=== PATIENT | male | born 2005 | race Caucasian/White ===

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

== ENCOUNTER 2024-03-19 18:51 | Emergency (ER) | payer OTHER, SELFPAY ==
[2024-03-19 18:54] VITALS: BP 142/84; PULSE 68; RESP 19; TEMP 36.6; O2SAT 99
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
[2024-03-19] MEDS: HYDROmorphone HCL INJ (*CRX) 2 MG/ML VIAL 0.5 MG IM (19:11)
[2024-03-19] MEDS: ONDANSETRON HCL ODT 4 MG TABLET PO (19:12)
[2024-03-19] MEDS: SILVER SULFADIAZINE 1% CR 50 GM JAR (*BKC) 1 APPLIC TOPICAL (20:02)
== END 2024-03-19 20:10 | disposition home or self-care (01) ==
PROVIDERS: Emergency Provider Internal Medicine Critical Care Medicine; PCP Family Medicine
DX: T22.212A Burn of second degree of left forearm, initial encounter (principal); X15.0XXA Contact with hot stove (kitchen), initial encounter; F12.90 Cannabis use, unspecified, uncomplicated
CPT/HCPCS: 99283; A9270; J1170

== ENCOUNTER 2024-03-30 19:00 | Emergency (ER) | payer OTHER, SELFPAY ==
[2024-03-30 19:00] VITALS: BP 122/76; PULSE 77; RESP 16; TEMP 36.7; O2SAT 98
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
[2024-03-30] MEDS: AZITHROMYCIN 250 MG TABLET 500 MG PO (19:44)
== END 2024-03-30 19:51 | disposition home or self-care (01) ==
PROVIDERS: Emergency Provider Emergency Medicine; PCP Family Medicine
DX: S60.415A Abrasion of left ring finger, initial encounter (principal); L08.9 Local infection of the skin and subcutaneous tissue, unspecified; X58.XXXA Exposure to other specified factors, initial encounter
CPT/HCPCS: 99283; A9270

== ENCOUNTER 2024-06-18 08:45 | Outpatient (CLI) | payer OTHER, SELFPAY ==
[2024-06-18 09:56] LABS: Strep Group A RT-PCR NOT DETECTED (Negative)
[2024-06-18 10:27] LABS: Influenza A QL RT-PCR Negative (Negative); Influenza B QL RT-PCR Negative (Negative); SARS-CoV-2 RNA PCR Positive (Negative)
== END 2024-06-18 08:46 | disposition home or self-care (01) ==
LOC: CHSLAB 08:47
PROVIDERS: PCP Family Medicine; Visit Provider Nurse Practitioner Family
DX: U07.1 COVID-19 (principal); J02.9 Acute pharyngitis, unspecified; M79.10 Myalgia, unspecified site
CPT/HCPCS: 87636; 87651

== ENCOUNTER 2024-08-06 10:02 | Outpatient (CLI) | payer OTHER, SELFPAY ==
--- NOTE | ~2024-08-06 | XR_ITS ---
Thoracic spine: Clinical Indication: Back pain AP and lateral views were performed. No fracture is seen. There is normal alignment of the vertebrae. The intervertebral disc spaces appe ar normal. Paravertebral soft tissues appear normal. Impression: No significant abnormalities noted. Reviewed, dictated and finalized at [facility]. Impression: No significant abnormalities noted.
--- NOTE | ~2024-08-06 | XR_ITS ---
Lumbosacral Spine: AP, oblique, and lateral views Clinical History: Pain Findings: The normal lordotic curve is maintained. The vertebral bodies and posterior elements are i ntact. The intervertebral disc spaces are preserved. The sacroiliac joints are normally outlined. Impression: No significant abnormality. Reviewed, dictated and finalized at [facility]. Impression: No significant abnormality.
[2024-08-06 10:22] LABS: Basophils Absolute Auto 0.06 K/mm3 (0.00-0.10); Basophils Percent Auto 0.8 % (0.0-1.0); Eosinophils Absolute Auto 0.19 K/mm3 (0.02-0.50); Eosinophils Percent Auto 2.5 % (1.0-6.0); Hematocrit 43.3 % (40.0-54.0); Immature Granulocyte Absolute 0.02 K/mm3 (0.00-0.00); Immature Granulocyte Percent A 0.3 % (0.0-0.0); Lymphocytes Absolute Auto 2.86 K/mm3 (1.10-4.50); Lymphocytes Percent Auto 37.5 % (18.0-42.0); Mean Corpuscular HGB Conc 34.6 g/dL (32-36); Mean Corpuscular Hemoglobin 31.1 pg (27.0-31.0); Mean Corpuscular Volume 89.8 fL (78.0-102.0); Mean Platelet Volume 9.8 fl (8.7-11.0); Monocytes Absolute Auto 0.54 K/mm3 (0.10-0.90); Monocytes Percent Auto 7.1 % (2.0-11.0); Neutrophils Absolute Auto 3.96 K/mm3 (1.70-7.20); Neutrophils Percent Auto 51.8 % (50.0-70.0); Platelet Count Result 267 K/mm3 (150-420); Red Blood Count 4.82 M/mm3 (4.70-6.10); White Blood Count 7.6 K/mm3 (4.8-10.8)
[2024-08-06 12:27] LABS: Erythrocyte Sedimentation Rate 6 mm/hr (0-15)
== END 2024-08-06 10:03 | disposition home or self-care (01) ==
PROVIDERS: PCP Family Medicine; Visit Provider Family Medicine
DX: M54.50 Low back pain, unspecified (principal)
CPT/HCPCS: 36415; 72072; 72110; 85025; 85652

== ENCOUNTER 2024-12-06 18:39 | Emergency (ER) | payer OTHER, SELFPAY ==
--- OUTSIDE RECORDS SUMMARY | 2024-12-06 18:40 | XMS_ITS | Clinical Summary ---
Author Organization [facility] Address [address] [place] [address] Care Team Providers Care Terra Cotta Roofer Helper Name Role Phone Luis F Choi MD Primary Care Provider [phone] Gisella Mcneill PA-C Unavailable [phone] Source Comments [facility],non-owned Affiliates and Associated Physician Practices is amultiple site organization consisting of ambulatory clinics and hospital sitesin [place], [place], [place] and [place]. This disclosure is being madepursuant to the Care Everywhere program and may not contain all information available regarding this patient. Last updated 18.[facility] Allergies Active Allergy Reactions Criticality Noted Date Comments Amoxicillin Urticaria Medium 07/02/2019 Penicillins Urticaria Medium 07/02/2019 Medications * Be aware that medications may not be up to date on this document. Alwaysverify current medications with the patient. 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 Closed dislocation of right patella 11/05/2019 Social History Tobacco Use Types Packs/Day Years Used Date Smoking Tobacco: Never Smokeless Tobacco: Never Sex and Gender Information Value Date Recorded Sex Assigned at Not on file Gender Identity Not on file Sexual Orientation Not on file Last Filed Vital Signs Vital Sign Reading Time Taken Comments Blood Pressure - - Pulse - - Temperature - - Respiratory Rate - - Oxygen Saturation - - Inhaled Oxygen Concentration - - Weight 89.1 kg (196 lb 6 oz) 08/12/2021 1:45 PM CDT Height 190.8 cm (6' 3.12 ) 08/12/2021 1:45 PM CD T Body Mass Index 24.47 08/12/2021 1:45 PM CDT Plan of Treatment Health Maintenance Due Date Last Done Comments HIV SCREENING 2019 HPV VACCINE (1 - Male 3-dose series) 2019 MENINGOCOCCAL (Group B) VACC INE (1 of 2 - Standard) 2020 HEPATITIS C SCREENING 03/25/2022 DTAP/TDAP/TD VACCINES (1 - Tdap) 2023 HEPATITIS B VACCINE (1 of 3 - 19+ 3-dose series) 2023 COVID-19 VACCINE (1 - 2023-2 5 season) 2024 INFLUENZA VACCINE (#1) 2024 DEPRESSION SCREENING 10/22/2024 ZOSTER VACCINE (1 of 2) 2054 HIB VACCINE Aged Out No longer eligi ble based on patient's age to complete this topic MENINGOCOCCAL VACCINE Aged Out No demetri paola eligible based on patient's age to complete this topic PNEUMOCOCCAL VACCINE Aged Out No long er eligible based on patient's age to complete this topic Care Teams Terra Cotta Roofer Helper Relationship Specialty Start Date End Date Luis F Choi MD [address] [place] [id number] PCP - General Family Medicine 07/02/19 Gisella Mcneill PA-C [address] [address] Physician Review Rn 07/02/19
--- OUTSIDE RECORDS SUMMARY | 2024-12-06 18:40 | XMS_ITS | Continuity of Care Document ---
Author Organization [facility] Address [address] [place] [address] Phone Care Team Providers Care Public Employment Mediator Name Role Phone Daniela Mcdonnell Unavailable Unavailable Procedures Procedure Date Eye Exam & Treatment Refraction Office/outpatient Visit, Est Eye Exam, New Patient Advance Directives Directive Yes / No Effective Date File Name No Information Encounters Encounter Description Practice Location Reason(s) For Visit Diagnoses Date Provider Providers Copied on Encounter [facility], [address] [place] [address] [address], [place], [place], [id number], tel:[phone] [facility] No Information [address] , [address], [place], [place], [facility], . tel:[phone] Office/outpat ient Visit, Est [facility], [address] [place] [address] [address], [place], [place], [id number], [place] tel:[phone] [facility] No Information [address] , [address], [place], [address], . tel:[phone] [facility], [address] [place] [address] [address], [place], [place], [id number], [place] tel:[phone] [facility] No Information Sep-3 0-[address] Mcdonnell Daniela. [address] , [address], [place], [address], [place]. tel:[phone] Referring Provider: Luis F Choi, [facility] [place], [address]. tel:[phone] Family History Family Member Type Diagnosis Age At Onset No Information Payers Payer name Insurance type Covered green party ID Authorleandro saucedo(s) [place] [id number] Social History Type Description Quantity Date Captured Comments Sex Male Smoking Status No Information Chief Complaint And Reason For Visit No Information Reason For Referral Reason For Referral No Information History Of Present Illness Encounter Date Complaint History Of Prese nt Illness No Information Functional Status Date Functional Assessmen t No Information Instructions Date Instruction Additional Infor mation No Information Assessments Type Assessment Date No Information Patient Care Teams Name Effective Dates (start - stop) Status Members No Information
--- OUTSIDE RECORDS SUMMARY | 2024-12-06 18:40 | XMS_ITS | Referral Summary ---
Author Organization [facility] Address [address] [place] [address] Care Team Providers Care Industrial Education Instructor Name Role Phone Luis F Choi MD Primary Care Provider [phone] Gisella Mcneill PA-C Unavailable [phone] Source Comments [facility],non-owned Affiliates and Associated Physician Practices is amultiple site organization consisting of ambulatory clinics and hospital sitesin [place], [place], [place] and [place]. This disclosure is being madepursuant to the Care Everywhere program and may not contain all information available regarding this patient. Last updated 18.[facility] Allergies Active Allergy Reactions Criticality Noted Date [...] 08/12/2021 1:45 PM CDT Plan of Treatment Not on file Care Teams Industrial Education Instructor Relationship Specialty Start Date End Date Luis F Choi MD [address] [place] [address] PCP - General Family Medicine 07/02/19 Gisella Mcneill PA-C [address] [address] Physician Lawn Service Worker 07/02/19
--- OUTSIDE RECORDS SUMMARY | 2024-12-06 18:40 | XMS_ITS | Patient Health Summary ---
Author Organization [facility] Address [address] [place] [address] Care Team Providers Care Instrument Worker Name Role Phone Luis F Choi MD Primary Care Provider Gisella Mcneill PA-C Unavailable [phone] Note from [facility],non-owned Affiliates and Associated Physician Practices is amultiple site organization consisting of ambulatory clinics and hospital sitesin [place], [place], [place] and [place]. This disclosure is being madepursuant to the Care Everywhere program and may not contain all information available regarding this patient. Last updated 18.[facility] Allergies * Amoxicillin(Urticaria) -Medium Criticality * Penicillins(Urticaria) -Medium Criticality Medications * Be aware that medications may not be up to date on this document. Alwaysverify current medications with the patient. * ibuprofen (MOTRIN) 600 MG tablet Take 600 mg by mouth every 6 hours as needed for Pain Active Problems Problem Noted Date Diagnosed Date [...] Mass Index 24.47 08/12/2021 1:45 PM CDT Procedures * XR KNEE RIGHT 4VW OR MORE(Performed 07/02/2019) Performed for Closed dislocation of right patella, initial encounter Results * XR KNEE RIGHT 4VW OR MORE (07/02/2019 10:43 AM CDT) Anatomical Region Laterality Modality Lower Extremity Radiographic Mary Ann ging 07/02/2019 2:39 PM CDT Impressions 07/02/2019 2:41 PM CDT 1. Probable minimally displaced avulsion fracture from the medial margin of the patella, without articular involvement. 2. Normal bone alignment. 3. Joint effusion and anterior soft tissue edema. Reading Radiologist: Ej Zee MD on 07/02/2019 at 2:41 PM Narrative 07/02/2019 2:41 PM CDT XR KNEE RIGHT 4VW OR MORE*[id number] 07/02/2019 10:36 AM INDICATION: Unspecified dislocation of right patella, initial encounter COMPARISON: None available at the time of dictation. TECHNIQUE: 4 views. FINDINGS: There is superficial soft tissue prominence anteriorly. There is a small to moderate amount of fluid in the knee joint. There is a small triangular bone fragment adjacent to the medial surface of the patella, proximally in the region of the retinaculum attachment. This could represent an avulsion fracture. Patellofemoral alignment is normal. There are no other acute osseous abnormalities. The growth plate widths are normal. Incidentally, there is a fibrous cortical lesion in the femoral diaphysis. Procedure Note Ej Zee MD - 07/02/2019 XR KNEE RIGHT 4VW OR MORE*[id number] 07/02/2019 10:36 AM INDICATION: Unspecified dislocation of right patella, initial encounter COMPARISON: None available at the time of dictation. TECHNIQUE: 4 views. FINDINGS: There is superficial soft tissue prominence anteriorly. There is a small to moderate amount of fluid in the knee joint. There is a small triangular bone fragment adjacent to the medial surface of the patella, proximally in the region of the retinaculum attachment. This could represent an avulsion fracture. Patellofemoral alignment is normal. There are no other acute osseous abnormalities. The growth plate widths are normal. Incidentally, there is a fibrous cortical lesion in the femoral diaphysis. IMPRESSION 1. Probable minimally displaced avulsion fracture from the medial margin of the patella, without articular involvement. 2. Normal bone alignment. 3. Joint effusion and anterior soft tissue edema. Reading Radiologist: Ej Zee MD on 07/02/2019 at 2:41 PM Gisella Mcneill PA-C DIAGNOSTIC IMAGING O [facility] Care Teams Instrument Worker Relationship Specialty Start Date End Date Luis F Choi MD [address] [place] [address] PCP - General Family Medicine 07/02/19 Gisella Mcneill PA-C [address] [address] Physician Sales And Service Technician 07/02/19
[2024-12-06 18:44] VITALS: BP 120/93; PULSE 117; RESP 18; TEMP 36.6; O2SAT 99
--- NOTE | 2024-12-06 18:46 | PC.NURSE ---
Covid culture sent to lab
--- NOTE | 2024-12-06 19:03 | ED_ITS ---
HPI - URI/Sore Throat General Chief Complaint: Upper Respiratory Infection Stated Complaint: cold symptoms Time Seen by Provider: 12/06/24 18:40 Source: patient Mode of arrival: ambulatory Limitations: no limitations History of Present Illness HPI Narrative: this is a 19-year-old male presents with some 3 day history of cough congestion nasal congestion with low-grade fevers with no shortness of breath no audible wheezing no chest pain. MD elicited complaint: fever, cough, rhinorrhea and nasal congestion Onset (ago): day(s) Consistency: constant Severity: mild Related Data Allergies Allergy/AdvReac Type Severity Reaction Status Date / Time amoxicillin Allergy Unknown Hives Verified 12/06/24 18:45 Penicillins Allergy Unknown Hives Verified 12/06/24 18:45 kiwi Allergy Rash Verified 12/06/24 18:45 Review of Systems Review of Systems: All systems reviewed & are unremarkable except as noted in HPI and below PMFSH Past Medical History Medical History No significant past medical history Surgical History Surgical History No significant past surgical history Family History Family History Father No problems noted. Social History Social History Social History: marijuana use Living arrangements: with family Gender identity (if verbalized by the patient): Male Exam Const: General: healthy appearing and no acute distress Nutritional Appearance: well nourished Orientation/consciousness: patient oriented x3 Limitations: no limitations HENMT: Other: Nasal congestion Neck: Neck: normal visual inspection, no lymphadenopathy and no meningeal signs Chest: Chest palpation & inspection: normal inspection of the chest Resp: Effort & Inspection: normal respiratory effort Auscultation: clear to auscultation bilaterally Cardio: Rate: regular rate and tachycardic Rhythm: regular rhythm GI: GI Palp: Yes Soft to palpation : General: Yes bladder normal to palpation Course Course Emergency Course: COVID RSV influenza performed and reviewed with patient. Vital Signs Vital signs: Vital Signs Temperature 36.6 C 12/06/24 18:44 Pulse Rate 117 H 12/06/24 18:44 Respiratory Rate 18 12/06/24 18:44 Blood Pressure 120/93 H 12/06/24 18:44 Pulse Oximetry 99 12/06/24 18:44 Oxygen Delivery Room Air 12/06/24 18:44 Temperature 36.6 C 12/06/24 18:44 Pulse Rate 117 H 12/06/24 18:44 Respiratory Rate 18 12/06/24 18:44 Blood Pressure 120/93 H 12/06/24 18:44 Pulse Oximetry 99 12/06/24 18:44 Oxygen Delivery Room Air 12/06/24 18:47 MDM - URI/Sore Throat Lab Data Labs: Lab Results 12/06/24 Range/Units 18:42 Influenza A (RT-PCR) Positive A (Negative) Influenza B (RT-PCR) Negative (Negative) RSV (RT-PCR) Negative (Negative) SARS-CoV-2 RNA (RT-PCR) Negative (Negative) Critical Care Time Critical Care Time Critical Care Time: No Discharge Plan Discharge Clinical Impression: Influenza Patient Disposition: Home, Self-Care Condition: Stable Instructions: Antibiotic Form, Influenza (ED) Additional Instructions: Take Tylenol or Motrin drink plenty of fluids and take medication as prescribed follow with primary if symptoms persist or worsen. Patient Language: Singaporean Prescriptions: New oseltamivir [Tamiflu] 75 mg capsule 75 mg PO Q12H 5 Days Qty: 10 0RF No Action silver sulfadiazine 1 % cream 1 applic topical DAILY Qty: 20 0RF Rx Instructions: apply a 1.5 mm thickness Follow-up/Referrals: Luis F Choi MD [Primary Care Provider] - Stand Alone Forms: Work/School Release IP Time of Disposition: 19:33
--- OUTSIDE RECORDS SUMMARY | 2024-12-06 19:14 | XMS_ITS | Clinical Summary ---
Author Organization [facility] Address [address] [place] [address] Care Team Providers Care Solderer Assembly Repair Name Role Phone Luis F Choi MD Primary Care Provider [phone] Gisella Mcneill PA-C Unavailable [phone] Source Comments [facility],non-owned Affiliates and Associated Physician Practices is amultiple site organization consisting of ambulatory clinics and hospital sitesin [place], [place], [place] and [place]. This disclosure is being madepursuant to the Care Everywhere program and may not contain all information available regarding this patient. Last updated 18.[facility] Allergies Active Allergy Reactions Criticality Noted [...] age to complete this topic Care Teams Solderer Assembly Repair Relationship Specialty Start Date End Date Luis F Choi MD [address] [place] [phone] PCP - General Family Medicine 07/02/19 Gisella Mcneill PA-C [address] [address] Physician Building Services Supervisor 07/02/19
--- OUTSIDE RECORDS SUMMARY | 2024-12-06 19:14 | XMS_ITS | Continuity of Care Document ---
Author Organization [facility] Address [address] [place] [address] Phone Care Team Providers Care Innersole Fitter Name Role Phone Daniela Mcdonnell Unavailable Unavailable Procedures Procedure Date Eye Exam & Treatment Refraction Office/outpatient Visit, Est Eye Exam, New Patient Advance Directives Directive Yes / No Effective Date File Name No Information Encounters Encounter Description Practice Location Reason(s) For Visit Diagnoses Date Provider Providers Copied on Encounter [facility], [address] [place] [address] [address], [place], [place], [id number], tel:[phone] [facility] No Information [address], [place], [place], [facility], . tel:[phone] Office/outpat ient Visit, Est [facility], [address] [place] [address] [address], [place], [place], [address], [place] tel:[phone] [facility] No Information [address], [place], [address], . tel:[phone] [facility], [address] [place] [address] [address], [place], [place], [address], [place] tel:[phone] [facility] No Information Sep-3 0-200 8 [address] Daniela. [address] , [address], [place], [address], [place]. tel:[phone] Referring Provider: Luis F Choi, [facility] [place], [address]. tel:[phone] Family History Family Member Type Diagnosis Age At Onset No Information Payers Payer name Insurance type Covered libertarian ID Authorleandro saucedo(s) Medicaid [place] [id number] Social History Type Description Quantity Date Captured [...]
--- OUTSIDE RECORDS SUMMARY | 2024-12-06 19:14 | XMS_ITS | Patient Health Summary ---
Author Organization [facility] Address [address] [place] [place] [address] Care Team Providers Care Ledge Man Name Role Phone Luis F Choi MD Primary Care Provider Gisella Mcneill PA-C Unavailable [phone] [facility],non-owned Affiliates and Associated Physician Practices is amultiple site organization consisting of ambulatory clinics and hospital sitesin [place], [place] and [place]. This disclosure is being madepursuant to the Care Everywhere program and may not contain all information available regarding this patient. Last updated 18.[facility] Allergies * Amoxicillin(Urticaria) -Medium Criticality * [...] PM CDT XR KNEE RIGHT 4VW OR MORE*[id number] 07/02/2019 10:36 AM INDICATION: Unspecified dislocation of [...] - 07/02/2019 XR KNEE RIGHT 4VW OR MORE*[id number] 07/02/2019 10:36 AM INDICATION: Unspecified dislocation of [...] PM Gisella Mcneill PA-C DIAGNOSTIC IMAGING O [facility] Care Teams Ledge Man Relationship Specialty Start Date End Date Luis F Choi MD [address] [place] [address] PCP - General Family Medicine 07/02/19 Gisella Mcenill PA-C [address] [address] Physician Funeral Director/Embalmer 07/02/19
--- OUTSIDE RECORDS SUMMARY | 2024-12-06 19:14 | XMS_ITS | Referral Summary ---
Author Organization [facility] Address [address] [facility] [place] [address] Care Team Providers Care Self Pay Collector Name Role Phone Luis F Choi MD Primary Care Provider [phone] Gisella Mcneill PA-C Unavailable [phone] Source Comments [facility],non-owned Affiliates and Associated Physician Practices is amultiple site organization consisting of ambulatory clinics and hospital sitesin [place], [place], [place] and [place]. This disclosure is being madepursuant to the Care Everywhere program and may not contain all information available regarding this patient. Last updated 18.[facility] Allergies Active Allergy Reactions Criticality Noted [...] of Treatment Not on file Care Teams Self Pay Collector Relationship Specialty Start Date End Date Luis F Choi MD [address] [place] [address] PCP - General Family Medicine 07/02/19 Gisella Mcneill PA-C [address] [address] Physician Tube Dispatcher 07/02/19
[2024-12-06 19:30] LABS: Influenza A QL RT-PCR Positive (Negative); Influenza B QL RT-PCR Negative (Negative); RSV RNA, RT-PCR Negative (Negative); SARS-CoV-2 RNA PCR Negative (Negative)
[2024-12-06] MEDS: OSELTAMIVIR PHOSPHATE 75 MG CAPSULE PO (19:41)
== END 2024-12-06 19:46 | disposition home or self-care (01) ==
PROVIDERS: Emergency Provider Emergency Medicine; PCP Family Medicine
DX: J11.1 Influenza due to unidentified influenza virus with other respiratory manifestations (principal); Z20.822 Contact with and (suspected) exposure to COVID-19
CPT/HCPCS: 87637; 99283; A9270

== ENCOUNTER 2025-02-13 13:58 | Outpatient (CLI) | payer OTHER, SELFPAY ==
--- NOTE | ~2025-02-13 | XR_ITS ---
XR ribs RT 2V w CXR 2V Ordering provider: Luis F Choi MD History: . Rt. sided posterior chest pain x1 day, NKI . Comparison: February 08, 2016 FINDINGS: BONES: No acute rib fracture. MEDIASTINUM: The cardiac silhouette is not enlarged. LUNGS: No infiltrates, effusions or pneumothorax. OTHER: No free air under the diaphragm. IMPRESSION: 1. No right rib fracture 2. No acute cardiopulmonary findings. Reviewed, dictated and finalized at location A.
--- NOTE | ~2025-02-13 | XR_ITS ---
3 VIEWS THORACIC SPINE Ordering provider: Luis F Choi MD History: . Rt. sided upper back pain x1 day, NKI . Comparison: None. FINDINGS: VERTEBRAL BODIES: Normal height and alignment. No visible fracture or subluxation. DISK SPACES: Normal. SOFT TISSUES: Normal. IMPRESSION: No acute osseous abnormality of the thoracic spine. Reviewed, dictated and finalized at location A.
--- OUTSIDE RECORDS SUMMARY | 2025-02-13 14:03 | XMS_ITS | Continuity of Care Document ---
Author Organization [facility] Address [address] [place] [address] Phone Care Team Providers Care Automatic Door Mechanic Name Role Phone Daniela Mcdonnell Unavailable Unavailable Procedures Procedure Date Eye Exam & Treatment Refraction Office/outpatient Visit, Est Eye Exam, New Patient Advance Directives Directive Yes / No Effective Date File Name No Information Encounters Encounter Description Practice Location Reason(s) For Visit Diagnoses Date Provider Providers Copied on Encounter [facility], [address] [place] [address] [address], [place], [place], [id number], tel:[phone] [facility] No Information [address], [place], [place], [facility], . tel:[phone] Office/outpat ient Visit, Est [facility], [address] [place] [address] [address], [place], [place], [address], [place] tel:[phone] [facility] No Information [address], [place], [address], . tel:[phone] [facility], [address] [place] [address] [address], [place], [place], [id number], [place] tel:[phone] [facility] No Information Sep-3 0-200 8 [address] Daniela. [address], [place], [address], [place]. tel:[phone] Referring Provider: Luis F Choi, [facility] [place], [address]. tel:[phone] Family History Family Member Type Diagnosis Age At Onset No Information Payers Payer name Insurance type Covered constitution party ID Authorleandro saucedo(s) Medicaid [place] [id number] Social History Type Description Quantity Date Captured [...]
--- OUTSIDE RECORDS SUMMARY | 2025-02-13 14:03 | XMS_ITS | Clinical Summary ---
Author Organization [facility] Address [address] [place] [address] Care Team Providers Care Surgical Garment Inspector Name Role Phone Luis F Choi MD Primary Care Provider [phone] Gisella Mcneill PA-C Unavailable [phone] Source Comments [facility],non-owned Affiliates and Associated Physician Practices is amultiple site organization consisting of ambulatory clinics and hospital sitesin [place], [place], [place] and [place]. This disclosure is being madepursuant to the Care Everywhere program and may not contain all information available regarding this patient. Last updated 18.[facility] Allergies Active Allergy Reactions Criticality Noted Date Comments Amoxicillin Urticaria Medium 07/02/2019 Penicillins Urticaria Medium 07/02/2019 Medications * Be aware that medications may not be up to date on this document. Alwaysverify current medications with the patient. ibuprofen (MOTRIN) 600 MG tablet Take 600 [...] Recorded Sex Assigned at Not on file Legal Sex Male 3:27 PM CDT Gender Identity Not on file Sexual Orientation [...] series) 2019 MENINGOCOCCAL (Group B) VACC INE SHARED DECISION-MAKING (1 of 2 - Standard) 2020 HEPATITIS C SCREENING 03/25/2022 DTAP/TDAP/TD VACCINES (1 - Tdap) 2023 HEPATITIS B VACCINE (1 of 3 - 19+ 3-dose series) 2023 COVID-19 VACCINE (1 - 2023-2 5 season) 2024 DEPRESSION SCREENING 10/22/2024 INFLUENZA VACCINE (Season Ended) 2025 ZOSTER VACCINE (1 of 2) 2054 HIB VACCINE Aged Out No longer eligi ble based on patient's age to complete this topic MENINGOCOCCAL GROUPS A/C/Y/W VACCINE Aged Out No longer eligible b ased on patient's age to complete this topic PNEUMOCOCCAL VACCINE Aged Out No long er eligible based on patient's age to complete this topic Insurance [facility] Care Teams Surgical Garment Inspector Relationship Specialty Start Date End Date Luis F Choi MD [address] [place] [phone] PCP - General Family Medicine 07/02/19 Gisella Mcneill, [facility] [address] [address] Physician Fire Safety Inspector 07/02/19
== END 2025-02-13 13:59 | disposition home or self-care (01) ==
PROVIDERS: PCP Family Medicine; Visit Provider Family Medicine
DX: R07.89 Other chest pain (principal); M54.9 Dorsalgia, unspecified
CPT/HCPCS: 71046; 71100; 72072

== ENCOUNTER 2025-04-22 12:12 | Emergency (ER) | payer OTHER, SELFPAY ==
[2025-04-22 12:12] VITALS: BP 110/75; PULSE 70; RESP 14; TEMP 36.3; O2SAT 97
--- OUTSIDE RECORDS SUMMARY | 2025-04-22 12:18 | XMS_ITS | Clinical Summary ---
Author Organization [facility] Address [address] [facility] [place] [address] Care Team Providers Care Retrieval Specialist Name Role Phone Luis F Choi MD Primary Care Provider [phone] Gisella Mcneill PA-C Unavailable [phone] Source Comments [facility],non-owned Affiliates and Associated Physician Practices is amultiple site organization consisting of ambulatory clinics and hospital sitesin [place], [place], [place] and [place]. This disclosure is being madepursuant to the Care Everywhere program and may not contain all information available regarding this patient. Last updated 18.[facility] Allergies Active Allergy Reactions Criticality Noted Date [...] 1:45 PM CDT Height 190.8 cm (6' 3.12) 08/12/2021 1:45 PM CD T Body Mass [...] patient's age to complete this topic Insurance [facility] Care Teams Retrieval Specialist Relationship Specialty Start Date End Date Luis F Choi MD [address] [place] [phone] PCP - General Family Medicine 07/02/19 Gisella Mcneill, PAT[facility] [address] [address] Physician Cartographic Aide 07/02/19
--- OUTSIDE RECORDS SUMMARY | 2025-04-22 12:18 | XMS_ITS | Continuity of Care Document ---
Author Organization [facility] [place] Address [address] [place] [address] Phone Care Team Providers Care Electronic Gluer Name Role Phone Daniela Mcdonnell Unavailable Unavailable Procedures Procedure Date Eye Exam & Treatment Refraction Office/outpatient Visit, Est Eye Exam, New Patient Advance Directives Directive Yes / No Effective Date File Name No Information Encounters Encounter Description Practice Location Reason(s) For Visit Diagnoses Date Provider Providers Copied on Encounter [facility], [address] [place] [address] [address], [place], [place], [id number], tel:[phone] [facility] No Information [address], [place], [place], [facility], . tel:[phone] Office/outpat ient Visit, Est [facility], [address] [place] [address] [address], [place], [place], [address], [place] tel:[phone] [facility] No Information [address], [place], [address], . tel:[phone] [facility], [address] [place] [address] [address], [place], [place], [address], [place] tel:[phone] [facility] No Information Sep-3 0-200 [address] Daniela. [address], [place], [address], [place]. tel:[phone] Referring Provider: Luis F Choi, [facility] [place], [address]. tel:[phone] Family History Family Member Type Diagnosis Age At Onset No Information Payers Payer name Insurance type Covered constitution party ID Authorleandro saucedo(s) Medicaid [place] [id number] Social History Type Description Quantity Date Captured [...]
--- NOTE | 2025-04-22 12:22 | ED_ITS ---
HPI - General Adult General Chief complaint: Skin/Abscess/Foreign Body Stated complaint: finger pain Time Seen by Provider: 04/22/25 12:21 Source: patient Mode of arrival: ambulatory Limitations: no limitations History of Present Illness HPI narrative: a 1-year-old male presents to the ED with -- left index finger ingrowing nail with cellulitis of the nail fold no fever or chills Onset (ago): day(s) ( 3 days) Location: upper extremity ( index finger) Severity: mild Pain Consistency: constant Relieving factors: none Exacerbating factors: none Associated symptoms: denies other symptoms Treatments prior to arrival: none Related Data Allergies Allergy/AdvReac Type Severity Reaction Status Date / Time amoxicillin Allergy Unknown Hives Verified 04/22/25 12:20 Penicillins Allergy Unknown Hives Verified 04/22/25 12:20 kiwi Allergy Rash Verified 04/22/25 12:20 Review of Systems Review of Systems: All systems reviewed & are unremarkable except as noted in HPI and below PMFSH Past Medical History Medical History No significant past medical history Surgical History Surgical History No significant past surgical history Family History Family History Father No problems noted. Social History Social History Social History: marijuana use Living arrangements: with family Gender identity (if verbalized by the patient): Male Exam Narrative: afebrile Const: General: no acute distress Nutritional Appearance: well nourished Orientation/consciousness: patient oriented x3 Limitations: no limitations HENMT: Head: normal to inspection Ears: external ears normal Face/Nose/Sinus: Normal external nose present Face and sinus: normal facial exam Mouth: Yes Normal oral and palatal mucosa present Throat: posterior oropharynx normal Eyes: Conjunctivae: conjunctivae normal Pupils: Equal, round and reactive pupils present EOM: EOMs intact bilaterally Direct Ophthalmoscopy: no photophobia Neck: Neck: normal visual inspection, no lymphadenopathy and no meningeal signs Chest: Chest palpation & inspection: normal inspection of the chest Resp: Effort & Inspection: normal respiratory effort Auscultation: clear to auscultation bilaterally Cardio: Rate: regular rate Rhythm: regular rhythm GI: GI Palp: Yes Soft to palpation Auscultation: normal bowel sounds : General: Yes no CVA tenderness Back/Spine/Pelvis: Back: no CVA tenderness Skin: General skin exam: normal color Rashes: no rashes Neuro: General: patient oriented x3, moves all extremities, no meningeal signs, no focal motor deficits and CN's II-XI intact bilaterally Extrem: General: normal to inspection Other: left hand index finger has cellulitis around lateral nail fold with ingrowing fingernail. Psych: Mental Status: mental status grossly normal Affect: normal affect Attitude: cooperative Course Course Emergency Course: Ingrowing fingernail cellulitis of nail fold of the left index finger Vital Signs Vital signs: Vital Signs Temperature 36.3 C L 04/22/25 12:12 Pulse Rate 70 04/22/25 12:12 Respiratory Rate 14 04/22/25 12:12 Blood Pressure 110/75 04/22/25 12:12 Pulse Oximetry 97 04/22/25 12:12 Oxygen Delivery Room Air 04/22/25 12:12 Temperature 36.3 C L 04/22/25 12:12 Pulse Rate 70 04/22/25 12:12 Respiratory Rate 14 04/22/25 12:12 Blood Pressure 110/75 04/22/25 12:12 Pulse Oximetry 97 04/22/25 12:12 Oxygen Delivery Room Air 04/22/25 12:12 Medical Decision Making MDM Narrative Medical decision making narrative: ingrowing finger nails cellulitis of the nail fold of the left index finger Differential Diagnosis Differential Diagnosis: paronychia Vital Signs Vital Signs: Vital Signs Temperature 36.3 C L 04/22/25 12:12 Pulse Rate 70 04/22/25 12:12 Respiratory Rate 14 04/22/25 12:12 Blood Pressure 110/75 04/22/25 12:12 Pulse Oximetry 97 04/22/25 12:12 Oxygen Delivery Room Air 04/22/25 12:12 Temperature 36.3 C L 04/22/25 12:12 Pulse Rate 70 04/22/25 12:12 Respiratory Rate 14 04/22/25 12:12 Blood Pressure 110/75 04/22/25 12:12 Pulse Oximetry 97 04/22/25 12:12 Oxygen Delivery Room Air 04/22/25 12:12 Discharge Plan Discharge Clinical Impression: Cellulitis Patient Disposition: Home Condition: Stable Instructions: Antibiotic Form, Cellulitis (ED), Ingrown Nail (ED) Patient Language: Mauritanian Prescriptions: New sulfamethoxazole-trimethoprim [Bactrim DS] 800-160 mg tablet 1 tablet PO Q12H Qty: 14 0RF No Action oseltamivir [Tamiflu] 75 mg capsule 75 mg PO Q12H 5 Days Qty: 10 0RF silver sulfadiazine 1 % cream 1 applic topical DAILY Qty: 20 0RF Rx Instructions: apply a 1.5 mm thickness Follow-up/Referrals: Luis F Choi MD [Primary Care Provider] - Time of Disposition: 12:30
--- OUTSIDE RECORDS SUMMARY | 2025-04-22 12:44 | XMS_ITS | Continuity of Care Document ---
Author Organization [facility] Address [address] [place] [address] Phone Care Team Providers Care Fugitive Investigator Name Role Phone Daniela Mcdonnell Unavailable Unavailable Procedures Procedure Date Eye Exam & Treatment Refraction Office/outpatient Visit, Est Eye Exam, New Patient Advance Directives Directive Yes / No Effective Date File Name No Information Encounters Encounter Description Practice Location Reason(s) For Visit Diagnoses Date Provider Providers Copied on Encounter [facility], [address] [place] [address] [address], [place], [place], [address], tel:[phone] [facility] No Information [address], [place], [place], [facility], . tel:[phone] Office/outpat ient Visit, Est [facility], [address] [place] [address] [address], [place], [place], [address], [place] tel:[phone] [facility] No Information [address], [place], [address], . tel:[phone] [facility], [address] [place] [address] [address], [place], [place], [address], [place] tel:[phone] [facility] No Information Sep-3 0-200 [address] Daniela. [address], [place], [address], [place]. tel:[phone] Referring Provider: Luis F Choi, [facility] [place], [address]. tel:[phone] Family History Family Member Type Diagnosis Age At Onset No Information Payers Payer name Insurance type Covered alliance party ID Authorleandro saucedo(s) Medicaid [place] [id number] Social History Type Description Quantity Date Captured [...]
--- OUTSIDE RECORDS SUMMARY | 2025-04-22 12:44 | XMS_ITS | Clinical Summary ---
Author Organization [facility] [employer] Address [address] [facility] [place] [address] Care Team Providers Care Continuing Education Director Name Role Phone Luis F Choi MD Primary Care Provider [phone] Gisella Mcneill PA-C Unavailable [phone] Source Comments [facility],non-owned Affiliates and Associated Physician Practices is amultiple site organization consisting of ambulatory clinics and hospital sitesin [place], [place], [place]. This disclosure is being madepursuant to the Care Everywhere program and may not contain all information available regarding this patient. Last updated 18.[facility] [employer] [facility] Allergies Active Allergy Reactions Criticality Noted Date [...] patient's age to complete this topic Insurance [facility] Care Teams Continuing Education Director Relationship Specialty Start Date End Date Luis F Choi MD [address] [place] [phone] PCP - General Family Medicine 07/02/19 Gisella Mcneill, PATanvi[facility] [address] [address] Physician Phys Ther 07/02/19
== END 2025-04-22 12:58 | disposition home or self-care (01) ==
LOC: CHSED 12:42
PROVIDERS: Emergency Provider Internal Medicine Critical Care Medicine; PCP Family Medicine
DX: L03.012 Cellulitis of left finger (principal)
CPT/HCPCS: 99283

== ENCOUNTER 2025-09-24 20:22 | Emergency (ER) | payer OTHER, SELFPAY ==
--- NOTE | ~2025-09-24 | CT_ITS ---
CT abdomen pelvis wo con INDICATION:Left groin pain . COMPARISON: None. TECHNIQUE: Axial 2.5 mm images of the abdomen were obtained without IV or oral contrast. Diagnostic sensitivity is limited due to lack of IV contrast. FINDINGS: The lung bases are clear. The liver parenchyma is unremarkable. No intrahepatic mass or ductal dilatation is evident. The gallbladder is unremarkable. The pancreas and spleen are normal in appearance. The adrenal glands are symmetric in size. The kidneys are unremarkable. No intrarenal stones are noted. There is no hydronephrosis. Evaluation of the stomach and bowel loops are limited due to lack of oral contrast. The appendix is normal in appearance. The bladder and rectum are normal. The prostate is normal in size. No free intraperitoneal fluid or air is evident. Prominent retroperitoneal and pericecal lymph nodes noted measuring up to 7 mm in short axis dimension. The aorta, visceral vessels and renal arteries demonstrate normal caliber. The lower thoracic and lumbar vertebrae are in normal alignment. IMPRESSION: No acute abnormality is noted in the abdomen and pelvis. Nonspecific prominent retroperitoneal lymph nodes. All CT scans at this facility are performed using low dose modulation techniques as appropriate to perform exam including the following: automated exposure control; use of iterative reconstruction technique; adjustment of the mA and/or kV according to patient size (this includes techniques or standardized protocols for targeted exams where dose is matched to indication/reason for exam). Reviewed, dictated and finalized at location [facility] IMPRESSION: No acute abnormality is noted in the abdomen and pelvis. Nonspecific prominent retroperitoneal lymph nodes. All CT scans at this facility are performed using low dose modulation techniqu es as appropriate to perform exam including the following: automated exposure c ontrol; use of iterative reconstruction technique; adjustment of the mA and/or kV according to patient size (this includes techniques or standardized protocol s for targeted exams where dose is matched to indication/reason for exam).
[2025-09-24 20:24] VITALS: BP 152/80; PULSE 106; RESP 20; TEMP 36.2; O2SAT 97
--- OUTSIDE RECORDS SUMMARY | 2025-09-24 20:27 | XMS_ITS | Clinical Summary ---
Author Organization [facility] [employer] Address [address] [place] [address] Care Team Providers Care Dairy Equipment Mechanic Name Role Phone Luis F Choi MD Primary Care Provider [phone] Gisella Mcneill PA-C Unavailable [phone] Source Comments [facility],non-owned Affiliates and Associated Physician Practices is amultiple site organization consisting of ambulatory clinics and hospital sitesin [place], [place], [place] and [place]. This disclosure is being madepursuant to the Care Everywhere program and may not contain all information available regarding this patient. Last updated 18.[facility] [employer] Allergies Active Allergy Reactions Criticality Noted Date [...] of 3 - 19+ 3-dose series) 2023 DEPRESSION SCREENING 10/22/2024 COVID-19 VACCINE (1 - 2024-2 6 season) 2025 INFLUENZA VACCINE (#1) 2025 ZOSTER VACCINE (1 of 2) 2054 HIB VACCINE Aged Out No longer eligi ble based on patient's age to complete this topic MENINGOCOCCAL GROUPS A/C/Y/W VACCINE Aged Out No longer eligible b ased on patient's age to complete this topic PNEUMOCOCCAL VACCINE Aged Out No long er eligible based on patient's age to complete this topic Insurance [facility] Care Teams Dairy Equipment Mechanic Relationship Specialty Start Date End Date Luis F Choi MD [address] [place] [phone] PCP - General Family Medicine 07/02/19 Gisella Mcneill, [facility] [address] [address] Physician Tennis Net Maker 07/02/19
[2025-09-24] MEDS: KETOROLAC (*BKC) 60 MG/2 ML VIAL IM (20:43)
[2025-09-24 20:54] LABS: Add Urine Microscopic? NO; Appearance Urine Clear (Clear); Glucose Urine UA Negative (Negative); Leukocyte Esterase Ur Negative LEU/UL (Negative); Nitrate Urine Negative (Negative); Specific Grav Ur <= 1.005 (1.010-1.020)
[2025-09-24 21:09] LABS: Hematocrit 42.1 % (40.0-54.0); Hemoglobin 14.5 g/dL (14.0-18.0); Immature Granulocyte Percent A 0.4 % (0.0-0.0); Lymphocytes Absolute Auto 2.57 K/mm3 (1.10-4.50); Mean Corpuscular HGB Conc 34.4 g/dL (32-36); Mean Corpuscular Hemoglobin 31.1 pg (27.0-31.0); Mean Corpuscular Volume 90.3 fL (78.0-102.0); Nucleated Red Blood Cells Absolute Auto 0.00 K/mm3 (0.00-0.00); Nucleated Red Blood Cells Perc 0.0 % (0-0.0); Platelet Count Result 245 K/mm3 (150-420); Red Blood Count 4.66 M/mm3 (4.70-6.10); White Blood Count 8.5 K/mm3 (4.8-10.8)
[2025-09-24 21:20] VITALS: BP 145/90; PULSE 82; RESP 20; TEMP 36.6; O2SAT 98
--- NOTE | 2025-09-24 21:20 | ED_ITS ---
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 Rates his pain about a 5/10. Onset (ago): day(s) Duration: constant Severity: moderate Severity scale (1-10): 5 Quality: aching Relieving factors: rest Exacerbating factors: movement Related Data Allergies Allergy/AdvReac Type Severity Reaction Status Date / Time amoxicillin Allergy Unknown Hives Verified 09/24/25 20:27 Penicillins Allergy Unknown Hives Verified 09/24/25 20:27 kiwi Allergy Rash Verified 09/24/25 20:27 Review of Systems 2 Review of Systems: All systems reviewed & are unremarkable except as noted in HPI and below PMFSH Past Medical History Medical History No significant past medical history Surgical History Surgical History No significant past surgical history Family History Family History Father No problems noted. Social History Social History Social History: marijuana use Living arrangements: with family Gender identity (if verbalized by the patient): Male Exam 2 Const: General: healthy appearing and no acute distress Nutritional Appearance: well nourished Limitations: no limitations Chest: Chest palpation & inspection: normal inspection of the chest Resp: Effort & Inspection: normal respiratory effort Auscultation: clear to auscultation bilaterally Cardio: Rate: regular rate Rhythm: regular rhythm GI: GI Palp: Yes Soft to palpation Auscultation: normal bowel sounds : General: Yes bladder normal to palpation Other: Negative prehn test with no hernias palpated Skin: General skin exam: normal color Rashes: no rashes Extrem: General: normal to inspection and no clubbing, cyanosis or edema Course Course Emergency Course: Medical decision making narrative: The patient was evaluated by myself in the emergency department. History obtained from the patient who is an independent historian physical exam performed and witnessed by nurse. Patient had a CT scan of the abdomen pelvis without contrast which showed no acute abnormalities. Blood work including UA were without any significant abnormalities. Patient did receive 60mg IM Toradol and after reassessment patient's pain level has markedly improved. Repeat assessment: Patient doing well on repeat exam with no acute distress Symptoms have improved since arrival to the emergency department. Repeat vital stable Patient agrees with discussion after shared medical decision making and agrees with discharge All questions answered to the patient's satisfaction Follow-up with primary in 3 to 5 days for further evaluation and treatment. Vital Signs Vital signs: Vital Signs Temperature 36.2 C L 09/24/25 20:24 Pulse Rate 106 H 09/24/25 20:24 Respiratory Rate 20 09/24/25 20:24 Blood Pressure 152/80 H 09/24/25 20:24 Pulse Oximetry 97 09/24/25 20:24 Oxygen Delivery Room Air 09/24/25 20:24 Temperature 36.2 C L 09/24/25 20:24 Pulse Rate 106 H 09/24/25 20:24 Respiratory Rate 20 09/24/25 20:24 Blood Pressure 152/80 H 09/24/25 20:24 Pulse Oximetry 97 09/24/25 20:24 Oxygen Delivery Room Air 09/24/25 20:24 MDM Differential Diagnosis Differential Diagnosis: Groin strain Lab Data 09/24/25 21:06 09/24/25 21:06 Labs: Lab Results 09/24/25 09/24/25 Range/Units 20:41 21:06 WBC 8.5 (4.8-10.8) K/mm3 RBC 4.66 L (4.70-6.10) M/mm3 Hgb 14.5 (14.0-18.0) g/dL Hct 42.1 (40.0-54.0) % MCV 90.3 (78.0-102.0) fL MCH 31.1 H (27.0-31.0) pg MCHC 34.4 (32-36) g/dL RDW 12.1 (11.6-14.4) % Plt Count 245 (150-420) K/mm3 MPV 9.7 (8.7-11.0) fl Immature Gran % (Auto) 0.4 H (0.0-0.0) % Neut % (Auto) 60.1 (50.0-70.0) % Lymph % (Auto) 30.1 (18.0-42.0) % Wilkes % (Auto) 5.7 (2.0-11.0) % Eos % (Auto) 3.0 (1.0-6.0) % Baso % (Auto) 0.7 (0.0-1.0) % Lymph # (Auto) 2.57 (1.10-4.50) K/mm3 Wilkes # (Auto) 0.49 (0.10-0.90) K/mm3 Eos # (Auto) 0.26 (0.02-0.50) K/mm3 Baso # (Auto) 0.06 (0.00-0.10) K/mm3 Abs Immat Gran (auto) 0.03 H (0.00-0.00) K/mm3 Absolute Neuts (auto) 5.13 (1.70-7.20) K/mm3 Absolute Nucleated RBC 0.00 (0.00-0.00) K/mm3 Nucleated RBC % 0.0 (0-0.0) % Sodium Pending Potassium Pending Chloride Pending Carbon Dioxide Pending Anion Gap Pending BUN Pending Creatinine Pending Estim Creat Clear Calc Pending Estimated GFR Pending Glucose Pending Calculated Osmolality Pending Calcium Pending Total Bilirubin Pending AST Pending ALT Pending Alkaline Phosphatase Pending Total Protein Pending Albumin Pending Urine Color Light yellow (Yellow) Urine Appearance Clear (Clear) Urine pH 6.0 (5.0-8.0) Ur Specific [place] <= 1.005 L (1.010-1.020) Urine Protein Negative (Negative) Urine Glucose (UA) Negative (Negative) Urine Ketones Negative (Negative) Ur Blood (Man) Negative (Negative) Urine Nitrate Negative (Negative) Urine Bilirubin Negative (Negative) Urine Urobilinogen 0.2 (0.2-1.0) mg/dL Leukocyte Esterase Rfl Negative (Negative) JASVIR/UL Imaging Data Radiologist's impression: ITS Impressions Abdomen/Pelvis CT 09/24/25 20:59 IMPRESSION: No acute abnormality is noted in the abdomen and pelvis. Nonspecific prominent retroperitoneal lymph nodes. All CT scans at this facility are performed using low dose modulation techniques as appropriate to perform exam including the following: automated exposure control; use of iterative reconstruction technique; adjustment of the mA and/or kV according to patient size (this includes techniques or standardized protocols for targeted exams where dose is matched to indication/reason for exam). Critical Care Time Critical Care Time Critical Care Time: No Discharge Plan Discharge Clinical Impression: Strain of left groin Patient Disposition: Home Condition: Stable Instructions: Antibiotic Form, Groin Strain (ED) Additional Instructions: Advised patient to take Tylenol or Motrin can use a warm compress and follow with primary in 3 to 5 days further evaluation and treatment. Patient Language: Guamanian Prescriptions: No Action oseltamivir [Tamiflu] 75 mg capsule 75 mg PO Q12H 5 Days Qty: 10 0RF sulfamethoxazole-trimethoprim [Bactrim DS] 800-160 mg tablet 1 tablet PO Q12H Qty: 14 0RF silver sulfadiazine 1 % cream 1 applic topical DAILY Qty: 20 0RF Rx Instructions: apply a 1.5 mm thickness Follow-up/Referrals: Luis F Choi MD [Primary Care Provider, Internal Medicine] Time of Disposition: 21:26
[2025-09-24 21:21] LABS: Alanine Aminotransferase 21 U/L (6-50); Albumin Level 5.0 g/dL (3.5-5.1); Alkaline Phosphatase 47 U/L (38-126); Anion Gap 13 mmol/L (4-12); Aspartate Amino Transferase 29 U/L (17-59); Bilirubin,Total 0.3 mg/dL (0.2-1.3); Blood Urea Nitrogen 13 mg/dL (9-20); Calcium 9.7 mg/dL (8.4-10.2); Carbon Dioxide 22 mmol/L (22-30); Chloride 106 mmol/L (98-107); Estimated CRCL calculation 114 ml/min; Estimated Glomerular Filt Rate > 60; Glucose 101 mg/dL (65-110); Osmolality Calculated 292 mOsm/kg (285-295); Potassium 3.8 mmol/L (3.4-5.0); Sodium 141 mmol/L (137-145); Total Protein 7.7 g/dL (6.3-8.2)
== END 2025-09-24 21:27 | disposition home or self-care (01) ==
PROVIDERS: Emergency Provider Emergency Medicine; PCP Family Medicine
DX: S39.011A Strain of muscle, fascia and tendon of abdomen, initial encounter (principal); X58.XXXA Exposure to other specified factors, initial encounter
CPT/HCPCS: 36415; 74176; 80053; 81003; 85025; 96372; 99284; J1885

== ENCOUNTER 2025-10-07 10:12 | Outpatient (CLI) | payer OTHER, SELFPAY ==
--- NOTE | ~2025-10-07 | US_ITS ---
EXAM/PROCEDURE: US scrotum doppler HISTORY: palp lump left testicle COMPARISON: None available. TECHNIQUE: Scrotal ultrasound FINDINGS: Right testicle: 4.8 x 3.5 x 2.3 cm Left testicle: 4.5 x 3.2 x 2.3 cm Both testicles appear normal in echotexture and vascular flow. Small bilateral hydroceles. No varicoceles. Both epididymal regions appear normal. IMPRESSION: 1. Normal-appearing testicles. 2. Small bilateral hydroceles. Reviewed, dictated and finalized at location [facility]
== END 2025-10-07 10:13 | disposition home or self-care (01) ==
PROVIDERS: PCP Family Medicine; Visit Provider Family Medicine
DX: R10.32 Left lower quadrant pain (principal); N43.3 Hydrocele, unspecified
CPT/HCPCS: 76870; 93976